=== PATIENT | male | born 1935 | race Caucasian/White ===

== ENCOUNTER → 2016-09-05 | Outpatient (CLI) | payer MEDICARE, BC, OTHER ==
[~2016-09-05] MED LIST: ASPI1TAB69 PO; ATOR20TA15 PO; CALC1TAB53 PO; CENTTAB PO; CRAN250T PO; EPINEPHrine HCL (1:1000) 1 MG/ML VIAL ONE; FISH1000 PO; FLAX10002 PO; GLUCTAB6 PO; HYDR25TA5 PO; LOSA50TA PO; OCUVTAB4 PO; OMEP20TA PO; SAW160TA PO; TAMS0.4C4 PO; XARE20TA PO
--- NOTE | 2016-09-05 11:47 | RADRPT ---
EXAM DATE/TIME: 09/05/2016 11:33 [place] COMPARISON: No previous studies available for comparison. INDICATIONS : Evaluate for pneumonia, pneumothorax and communicable diseases. Pre-op knee arthroscopy. MEDICAL HISTORY : None. SURGICAL HISTORY : None. ENCOUNTER: Initial ACUITY: 1 day PAIN SCORE: 0/10 LOCATION: chest FINDINGS: PA and lateral views of the chest demonstrate the lungs to be symmetrically aerated without evidence of mass, infiltrate or effusion. The cardiomediastinal contours are unremarkable. Osseous structure s are intact. CONCLUSION: No acute disease. Henrry Menon MD on September 05, 2016 at 11:46 Board Certified Radiologist. This report was verified electronically.
[2016-09-05 12:09] LABS: INTERNATIONAL NORMALIZED RATIO 1.1 RATIO; PROTHROMBIN TIME - PATIENT 12.5 SEC (9.8-11.6)
[2016-09-05 12:17] LABS: BLOOD, URINE NEG (NEG); GLUCOSE,URINE NEG (NEG); KETONE, URINE NEG (NEG); NITRITE,URINE NEG (NEG); PH, URINE 7.5 (5.0-8.5); URINE COLOR YELLOW (YELLW/STRAW)
[2016-09-05 12:19] LABS: COMMENT (UR) CULT NOT INDICATED; CULTURE IF INDICATED CULT NOT INDICATED
[2016-09-05 12:21] LABS: BICARBONATE 32.9 MEQ/L (21.0-32.0); POTASSIUM 3.9 MEQ/L (3.5-5.1)
== END ==
LOC: CPRE 10:20
PROVIDERS: ATTEND Orthopaedic Surgery
DX: Z01.810 Encounter for preprocedural cardiovascular examination (principal); Z01.811 Encounter for preprocedural respiratory examination; Z01.812 Encounter for preprocedural laboratory examination; Z79.01 Long term (current) use of anticoagulants; S83.242D Other tear of medial meniscus, current injury, left knee, subsequent encounter; X58.XXXD Exposure to other specified factors, subsequent encounter
CPT/HCPCS: 36415; 71020; 80048; 81001; 85610; J0171

== ENCOUNTER → 2016-10-13 | Day surgery (SDC) | payer MEDICARE, OTHER, BC ==
--- NOTE | 2016-09-11 21:57 | MH ---
cc: FRANK FREGOSO DATE OF ADMISSION 09/15/2016 ADMISSION DIAGNOSIS Medial meniscus tear of the left knee, chondromalacia left knee, chondromalacia patellae left knee, effusion left knee and pain of the left knee. HISTORY OF THE PRESENT ILLNESS The patient is an 81-year-old white male who has had a lengthy history of pain involving his left knee extending back at least 3 years at which time he reports undergoing an operative repair for ruptured quad tendon about the left knee. Treatment was completed in the [place], [place] area and the patient reports an uneventful recovery thereafter, and had been doing reasonably well until approximately two months prior to this current admission. At that time he was conforming to exercise activities when he hyperflexed his left knee with the onset of pain about the medial aspect of the knee being noted. He conformed to conservative management which included taking ibuprofen and applying ice with minimal relief being noted. He contacted his primary care physician Dr. Pryor who ordered x-ray studies which reported moderate tricompartmental osteoarthritis. The patient was later seen by the undersigned physician in July of this year for ongoing symptoms involving his left knee. A review of his x-ray studies did demonstrate some narrowing of the medial compartment consistent with a degenerative change for which the patient did receive a steroid injection and followed on an outpatient basis thereafter. Unfortunately he remained symptomatic with pain about the knee for which he did undergo an MRI scan the results of which identified a large joint effusion with extensive chondromalacia involving the patella as well as the medial compartment associated with an undersurface tear involving the posterior horn and body of the medial meniscus. The patient did report that he received some temporary benefit from the injection that he had previously received but because of continuing pain about the left knee indicated his desire to proceed with further disposition. The involvement of arthroscopic surgery was outlined for which the patient indicated his full understanding and expressed his desire to proceed accordingly. In compliance with his wishes he is currently being admitted in order that the above be accomplished. PAST MEDICAL HISTORY His past medical history, hospitalizations and surgeries have included: 1. Surgery of the left knee as described. 2. Right total hip arthroplasty. 3. Tonsillectomy. 4. Colonoscopy. 5. Hemorrhoidectomy. 6. Cystoscopy for history of a bladder tumor. 7. Medical management for dehydration. 8. And a TIA without residual being noted. 9. He has also undergone excision of melanoma involving the head, chest and back area. His medical illnesses include recently diagnosed atrial fibrillation. MEDICATIONS Current medications: 1. Tamsulosin 0.4 mg daily. 2. Omeprazole 20 milligrams daily. 3. Atorvastatin 20 mg daily. 4. Losartan 50 mg daily. 5. Hydrochlorothiazide 25 mg daily. 6. Glucosamine one daily. 7. An 81 milligrams aspirin tablet daily. 8. Centrum Silver. 9. PreserVision. 10. Flaxseed oil. 11. Cranberry extract. 12. Saw palmetto. 13. Fish oil. 14. Calcium, magnesium and zinc supplement. 15. He was recently started on Xarelto. ALLERGIES HE DESCRIBES A DRUG ALLERGY TO SULFA WHICH CREATES A GENERALIZED UNEASY SENSATION. REVIEW OF SYSTEMS He does wear glasses. Denies headache, seizure or syncope. No sinus congestion or epistaxis. Diminished auditory acuity for which hearing aids are utilized. No bleeding gums or dysphagia. Denies cough, shortness of breath, upper respiratory infection, pneumonia or tuberculosis. No angina. Recently diagnosed atrial fibrillation. Medically managed for hypertension. Appetite is good. Bowel movements are regular. No hepatitis, gallbladder disease or ulcers. There is a positive history of hemorrhoids. He has had previous urinary tract infection. History of kidney stones with spontaneous passage. Fracture of the right foot treated conservatively. No psychiatric illness. His remaining review of systems is unremarkable and noncontributory. FAMILY HISTORY The patient has been for 20 years, this being a third marriage. His is 70 years of age. She is in reasonably good health but did recently undergo cardiac stent insertion. The patient has three living daughters who are described as being in good health. One daughter at 17 years of age with a history of bone cancer. FAMILY HISTORY Otherwise positive for hypertension, diabetes, cerebral hemorrhage, kidney disease and skin cancer. SOCIAL HISTORY The patient completed a Ph.D. degree. 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 He denies active use of tobacco for over 60 years but had been a five pack year user prior to that time. Denies ethanol consumption. PHYSICAL EXAMINATION VITAL SIGNS: Height 6 feet, weight 213 pounds. GENERAL: An alert, oriented and responsive 81-year-old white male who sits quietly upon examination table with no obvious distress. HEENT: Pupils are equally round and reactive to light. Extraocular movements full. Sclerae clear. External nares clear. External auditory canals clear. Dental intact. Mucous membranes pink and moist. Pharynx clear. NECK: Supple. Active range of motion without appreciable pain. Carotid pulse bilaterally. Trachea midline. Thyroid without enlargement. LUNGS: Clear to auscultation and percussion. No CVA tenderness. No discomfort throughout the dorsal lumbar spine. HEART: Regular, irregular rhythm without murmur or gallop. ABDOMEN: Soft, nontender. Bowel sounds present. RECTAL: Per primary care physician. EXTREMITIES: Right knee a well-healed surgical wound about the anterior aspect of the knee consistent with prior history of surgery. No appreciable knee effusion. Slight medial joint line tenderness. Apprehension and compression sign negative. Limited mobility in the 110 degrees range of flexion with mild discomfort associated. No sensation of crepitation or instability. No ligamentous laxity. Distal sensory grossly intact. Independent gait. NEUROLOGICAL: Cranial nerves II-XII grossly intact excluding diminished auditory acuity. IMPRESSION Medial meniscus tear left knee, chondromalacia left knee, chondromalacia patellae left knee, effusion left knee and pain of the left knee. PLAN Arthroscopic surgery and possible arthrotomy left knee. The nature of the planned surgical procedure, the potential complications and risks associated, the expectations of surgery and the consent form were thoroughly reviewed with the patient in the presence of his prior to admission to the hospital. The patient has indicated his full understanding regarding all of the above and given consent to proceed with treatment as outlined. Medical evaluation and clearance for surgery will be completed by the patient's primary care physician Dr. Марина Pryor. MD JERICA Vera/KI /7:18 PM /9:43 PM
--- NOTE | 2016-09-23 12:16 | MH ---
Cc: ANNETTEALONFRANK DATE OF ADMISSION: 10/13/2016 ADMITTING DIAGNOSIS: 1. A medial meniscus tear of the left knee. 2. Chondromalacia left knee. 3. Chondromalacia patellae left knee. 4. Effusion left knee. 5. pain left knee. HISTORY The patient is an 81-year-old white male with a lengthy history of left knee pain extending back approximately three years at which time he reported undergoing operative repair for ruptured quad tendon about his left knee. His treatment was completed in the [facility] area where the patient reports an uneventful recovery thereafter and had been doing well until approximately 2-3 months prior to his current admission. At that time he was conforming to exercise activities when he hyper flexed his left knee with the onset of pain about the medial aspect of the knee joint being noted. He conformed to conservative management which included taking ibuprofen and ice application with minimal relief being noted. He contacted his primary care physician Dr. Jose Meier who ordered x-ray studies which did report moderate tricompartmental osteoarthritis. The patient was later seen by the undersigned physician in July of this year for ongoing symptoms involving his left knee. A review of his x-ray studies demonstrated some narrowing of the medial compartment consistent with a degenerative process for which the patient did receive a steroid injection followed on an outpatient basis thereafter. Unfortunately he remained symptomatic with pain about his knee region for which he did subsequently undergo an MRI scan results of which identified a large joint effusion with extensive chondromalacia involving the patella as well as the medial compartment associated with an undersurface tear involving the posterior horn and body of the medial meniscus. The patient reported only temporary relief from his injection that he had previously received and was continuing to have pain about the left knee indicating his desire to proceed with further disposition. The involvement of arthroscopic surgery was outlined for which the patient indicated full understanding and expressed his desire to proceed accordingly in compliance with his wishes he is currently been scheduled for admission in order that the above be accomplished. PAST MEDICAL HISTORY/HOSPITALIZATIONS/SURGERIES: 1. Quad repair of the left knee as described. 2. Right total hip arthroplasty 3. Tonsillectomy 4. Colonoscopy 5. Hemorrhoidectomy 6. Cystoscopy for history of bladder tumor. Medical management of dehydration 7. TIA without residual 8. He has also undergone excision melanoma involving his head, chest and back area. 9. Medical illnesses include atrial fibrillation recently diagnosed. CURRENT MEDICATIONS 1. Tamsulosin 0.4 mg daily. 2. Omeprazole 20 mg daily. 3. Atorvastatin 20 mg daily. 4. Losartan 50 mg daily. 5. Hydrochlorothiazide 25 mg daily. 6. Glucosamine 1 daily. 7. 81 mg aspirin tablet one daily. 8. Centrum Silver 9. PreserVision 10. flaxseed oil 11. cranberry extract 12. saw palmetto 13. fish oil 14. calcium, magnesium and zinc supplement 15. Xarelto ALLERGIES the patient describes a drug allergy to SULFA which has caused generalized uneasy sensation. REVIEW OF SYSTEMS Wears glasses. No headache, seizure or syncope. No sinus congestion or epistaxis. Diminished auditory acuity for which hearing aids are easily utilize no bleeding gums or dysphagia. Denies cough, shortness of breath, upper respiratory infection, pneumonia or tuberculosis. No angina. Recently diagnosed atrial fibrillation medically managed for hypertension. Appetite good bowel movements regular. No hepatitis, gallbladder disease or ulcers. He has a history of hemorrhoids previous urinary tract infection, kidney stones with spontaneous passage, fracture of the right foot treated conservatively. No psychiatric illness. Remaining review of systems is unremarkable and noncontributory. FAMILY HISTORY 20 years, this being a third marriage why 68 years of age in good health but did undergo recent cardiac stent insertion. The patient has three living daughters are described as being good health. One daughter at 17 years of age with a history of bone cancer. FAMILY HISTORY: Otherwise positive for hypertension, diabetes, cerebral hemorrhage kidney disease and skin cancer. SOCIAL HISTORY The patient completed a Ph.D. degree. 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 He denies active use of tobacco for more than 60 years but had been a five pack year history prior to that time, denies ethanol consumption. PHYSICAL EXAMINATION VITAL SIGNS: Height 6 feet, weight 213 pounds. An alert, oriented responsive 81 Old white male who sits quietly upon examination table with no apparent distress. HEAD, EYES, EARS, NOSE, AND THROAT: Eyes, nose and throat pupils equally round and reactive to light. Extraocular movements full. Sclerae clear. External nares clear. External auditory canals clear. Dental intact. Mucous membranes pink and moist. Pharynx clear. NECK: Supple. Active range of motion without significant pain. Carotid pulse bilaterally. Trachea midline. Thyroid without enlargement. LUNGS: Clear to auscultation and percussion. No CVA tenderness. No discomfort throughout the dorsal lumbar spine. HEART: Regular irregular rhythm without murmur or gallop. ABDOMEN: The abdomen is soft, nontender, bowel sounds present. RECTUM: Rectal per primary care physician. EXTREMITIES: Right knee per primary care physician. Extremities: Right knee. A well-healed surgical wound about the anterior aspect of the knee consistent with prior history of surgery. No appreciable knee effusion. The medial joint line tenderness. Apprehension and compression sign negative. Limited mobility in the 110 degrees range of flexion with mild discomfort associated, no sensation of crepitation or instability. No ligamentous laxity. Distal sensory grossly intact. Independent gait. NEUROLOGIC: Cranial nerves II-XII grossly intact excluding diminished auditory acuity. IMPRESSION 1. Medial meniscus tear left knee. 2. chondromalacia left knee. 3. chondromalacia patellae left knee. 4. effusion left knee. 5. pain left knee. PLAN Arthroscopic surgery and possible arthrotomy of the left knee. The nature of the planned surgical procedure the potential complications and risks associated the expectations of surgery and the consent form were thoroughly reviewed with the patient in the presence of his prior to [id number] to the hospital the patient has indicated his full understanding regarding all of the above and given consent to proceed with treatment as outlined. Medical evaluation and clearance for surgery will be completed by the patient's primary care physician Dr. Марина Pryor. MD JERICA Vera/ashlee /10:49 AM /11:35 AM
[~2016-10-13] VITALS: Ht 182.9 cm; Wt 98.9 kg
[~2016-10-13] MED LIST changes: +ACETAMINOPHEN 1000 MG/100 ML VIAL IV ONE; +CHLORHEXIDINE GLUCONATE 2 % 1 PACK (2 CLOTHS) TOPICAL PRN; -EPINEPHrine HCL (1:1000) 1 MG/ML VIAL ONE; +FAMOTIDINE 20 MG/2 ML VIAL ONE; +INSULIN HUMAN REGULAR 1,000 UNITS/10 ML VIAL SQ PRN; +KETOROLAC TROMETHAMINE 60 MG/2 ML (IM) VIAL IM ONE; +LACTATED RINGER'S 1000 ML INJ 1,000 ML IV ONE; +LACTATED RINGER'S 1000 ML INJ 1,000 ML IV SCH; +LIDOCAINE HCL 2% 50 ML VIAL ONE; +LIDOCAINE HCL 2% PF SOLN 10 ML VIAL INFIL ONE; +METOPROLOL TARTRATE 25 MG TAB PO PRN; +MIDAZOLAM HCL 2 MG/2 ML VIAL ONE; +ONDANSETRON HCL 4 MG/2 ML VIAL IV PUSH ONE; +POVIDONE IODINE 5% (ANTISEPSIS KIT) 4 APPLICATIONS EACH NARE PRN; +POVIDONE IODINE 7.5% SCRUB 118 ML BOTTLE TOPICAL SCH; +PROPOFOL 200 MG/20 ML AMP IV ONE; +SODIUM CHLORID 0.9% 500 ML IV PRN; +TRIAMCINOLONE ACETONIDE 40 MG/ML VIAL I-ARTICULR ONE; +ceFAZolin 2 GM PREMIX 50 ML IV SCH; +ePHEDrine/NS 25 MG/5 ML SYR IV ONE; +fentaNYL CITRATE 250 MCG/5 ML AMP ONE
[2016-10-13 06:19] VITALS: BP 152/78; PULSE 63; RESP 18; TEMP 97.8; O2SAT 97
[2016-10-13 09:20] VITALS: TEMP 97.9
[2016-10-13 10:00] VITALS: BP 143/67; PULSE 70; RESP 18; O2SAT 100
--- NOTE | 2016-10-17 23:00 | MP ---
cc: FRANK NARAYAN DATE OF SURGERY 10/13/16 PREOPERATIVE DIAGNOSIS 1. Medial meniscus tear of the left knee 2. Chondromalacia left knee, 3. Chondromalacia patellae left knee 4. Effusion left knee 5. Pain left knee. POSTOPERATIVE DIAGNOSIS 1. Medial meniscus tear of the left knee 2. Chondromalacia left knee, 3. Chondromalacia patellae left knee 4. Effusion left knee 5. Pain left knee. 6. Synovial plica left knee PROCEDURE 1. Partial medial meniscectomy left knee 2. Chondroplasty of the patellofemoral joint and the medial compartment 3. Resection of synovial plica left knee SURGEON Micheal Narayan MD ANESTHESIA General by LMA FORMAT Following induction of satisfactory general anesthesia by LMA insertion as completed per the Department of Anesthesia, examination of the left knee did reveal a satisfactory range of motion with no appreciable ligamentous instability. The extremity proper was positioned in the surgical supply assistant knee mohan, prepped with Betadine solution and draped into a sterile field in the routine manner. Prior to initiation of the actual procedure, the standard time-out protocol was completed. All parameters were appropriately addressed and confirmed by operating room personnel. Arthroscopic instrumentation was introduced through stab wound utilizing cannula with sharp and blunt trocar. The inflow irrigation by way of a medial suprapatellar portal. The arthroscope through a lateral parapatellar portal and a probe through a medial parapatellar portal. Examination of the suprapatellar pouch revealed a prominent synovial plica extending throughout the medial aspect with associated reactive synovitis. Obvious cartilaginous irregularity involving the patellofemoral joint consistent with localized chondromalacia and associated degenerative change within the medial compartment a degenerative tear involving the body and posterior horn of the medial meniscus was associated with generalized chondromalacia involving both femoral condyle and tibial plateau. Examination throughout the intercondylar region revealed an intact anterior cruciate ligament. There were additional degenerative changes throughout the lateral compartment including some fraying of the lateral meniscus. Utilizing a 4.0 aggressive resector, a limited debridement of the lateral compartment transitioned into the medial compartment where a partial medial meniscectomy was accomplished as well as a generalized chondroplasty of both femoral condyle and tibial plateau. The shaver was thereafter oriented into the suprapatellar region where the previously identified synovial plica was resected followed by a generalized chondroplasty of the patellofemoral joint. Upon completion of same, the joint space was thoroughly lavaged and suctioned dry. An intra-articular Kenalog-lidocaine injection was completed. Portal sites were reapproximated with Steri-Strips over which Xeroform gauze and a bulky dry sterile dressing were applied. Anesthesia was discontinued and the patient thus transferred to a hospital stretcher and returned to the recovery room in satisfactory condition having tolerated his operative procedure well. Estimated blood loss was less than 10 mL. MD JERICA Vera/ /8:42 AM /10:51 PM
== END | disposition home or self-care (01) ==
LOC: EDUNIT# 09-15 08:30 → HSDC 05:33
PROVIDERS: ATTEND Orthopaedic Surgery
DX: S83.242A Other tear of medial meniscus, current injury, left knee, initial encounter (principal); M94.262 Chondromalacia, left knee; M67.52 Plica syndrome, left knee; I10 Essential (primary) hypertension; I48.91 Unspecified atrial fibrillation; Z79.01 Long term (current) use of anticoagulants; Z79.82 Long term (current) use of aspirin; Z86.73 Personal history of transient ischemic attack (TIA), and cerebral infarction without residual deficits; Z85.820 Personal history of malignant melanoma of skin; Z96.641 Presence of right artificial hip joint
CPT/HCPCS: 01400; 29881; J0131; J0690; J1885; J2250; J2405; J3010; J3301; J7120

== ENCOUNTER 2018-07-24 05:13 | Inpatient (IN) ==
--- NOTE | 2018-07-22 12:53 | MH ---
cc: William Narayan MD DATE OF ADMISSION: 07/24/2018 He is scheduled for admission on 07/24/2018. ADMITTING DIAGNOSIS: Osteoarthritis of the left knee. HISTORY OF PRESENT ILLNESS: The patient is an 82-year-old white male who has experienced at least a 5-year history of pain involving his left knee. He had sustained an injury to his left knee within the previous 5 years, resulting in a ruptured quad tendon that did require operative repair, this treatment being completed in the [facility] area where he experienced an uneventful recovery and had done well until the past couple of years when he began to experience some recurrent pain about his knee as a result of exercise activities. He was later diagnosed as having a medial meniscus tear associated with chondromalacia for which he did undergo arthroscopic surgery in September 2016. Once again, he had done reasonably well but with the passage of time, became progressively more symptomatic with pain for which he returned to the office in May of this past year, reporting that he was experiencing progressive pain about the anterior aspect of his left knee that had begun to influence all weightbearing activities. He had been taking ibuprofen for pain management with minimal benefit being described. His x-ray studies revealed obvious degenerative change with [id number] apposition about the medial compartment, associated with a varus deformity of approximately 10 degrees magnitude and secondary degenerative involvement of the patellofemoral articulation. There was ossification superior to the patella that was consistent with his prior history of injury and surgery. Findings and treatment options were reviewed with the patient at that time. The pros and cons of continued conservative management versus operative intervention involving total knee replacement were outlined in detail. Emphasis was made regarding the fact that the decision to proceed with surgery would be left entirely to the patient's discretion. The patient noted that he felt his symptoms had progressed to a point in time where he was ready to proceed accordingly, and in compliance with his wishes, he is currently being admitted in order that a total knee replacement be completed. PAST MEDICAL HISTORY, HOSPITALIZATIONS AND SURGERIES: In addition to arthroscopic surgery as described include quad tendon repair of the left knee, right total hip arthroplasty, left total shoulder arthroplasty, tonsillectomy, colonoscopy, hemorrhoidectomy and cystoscopy for history of bladder tumor and medical management for dehydration, medical management of a TIA, excision of a melanoma involving the head, chest and back area. His current medical illnesses include a history of atrial fibrillation. CURRENT MEDICATIONS: 1. Tamsulosin 0.4 mg daily. 2. Omeprazole 20 mg daily. 3. Atorvastatin 20 mg daily. 4. Losartan 80 mg daily. 5. Hydrochlorothiazide 25 mg daily. 6. He has been taking an 81 mg aspirin tablet daily. 7. Centrum Silver 8. PreserVision. 9. Cranberry extract. 10. Saw palmetto. 11. Fish oil. 12. Turmeric. 13. Calcium, magnesium and zinc supplement. ALLERGIES: THE PATIENT DESCRIBES A DRUG ALLERGY TO SULFA, WHICH HAS CAUSED A GENERALIZED UNEASY SENSATION. REVIEW OF SYSTEMS: He does wear glasses. Denies headache, seizure or syncope. No sinus congestion or epistaxis. Diminished auditory acuity for which hearing aids are utilized. No bleeding gums or dysphagia. Denies cough, shortness of breath, upper respiratory infection, pneumonia or tuberculosis. No angina. He has been diagnosed with atrial fibrillation in the past. Medically managed for hypertension. Appetite good. Bowel movements regular. No hepatitis, gallbladder disease or ulcers. Positive history of hemorrhoids, history of urinary tract infection, kidney stones with spontaneous passage, fracture of right foot, treated conservatively. No psychiatric illness. His remaining review of systems is unremarkable and noncontributory. FAMILY HISTORY: at least 21 years, this being a third marriage. is 70 years of age, in good health, is status post cardiac stent insertion. Three daughters, all indicated to be in good health. One daughter at 17 years of age with a history of bone cancer. Family history is otherwise positive for hypertension, diabetes, cerebral hemorrhage, kidney disease and skin cancer. SOCIAL HISTORY: The patient completed a Ph.D. degree education. 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 Denies active use of tobacco for greater than 62 years, having been a 5-pack-year user in the past. Denies ethanol consumption. PHYSICAL EXAMINATION: VITAL SIGNS: Height 6 feet, weight 219 pounds. GENERAL: An alert, oriented and responsive 82-year-old white male sitting quietly upon the examination table, no obvious distress. HEAD, EARS, EYES, NOSE AND THROAT: Pupils are equally round and reactive to light. Extraocular movements full. Sclerae are clear. External nares clear. External auditory canals clear. Dental intact. Mucous membranes pink and moist. Pharynx clear. NECK: Supple. Active range of motion without appreciable pain. Carotid pulses palpable bilaterally. Trachea midline. Thyroid without thyroid enlargement. LUNGS: Clear to auscultation and percussion. BACK: No CVA tenderness. No discomfort throughout the dorsolumbar spine. HEART: Irregular rhythm without murmur or gallop. ABDOMEN: Soft, nontender. Bowel sounds present. RECTAL: Per primary care physician. EXTREMITIES: Left knee with a well-healed surgical wound along the anterior aspect of the knee consistent with a prior history of surgery. No swelling or effusion. No appreciable joint line tenderness. Apprehension and compression sign negative. Limited mobility in the 90-100 degree range of flexion with pain elicited. No crepitation or instability. No collateral ligamentous laxity. Mamie test and drawer sign negative. Pivot shift and Dahlia sign positive for medial compartment pain. Straight leg raising unremarkable at 80 degrees. Independent gait. NEUROLOGIC: Cranial nerves 2-12 grossly intact, excluding diminished auditory acuity. IMPRESSION: Osteoarthritis, left knee. PLAN: Left total knee arthroplasty: The nature of the planned surgical procedure, the potential complications and risks associated, the expectations of surgery and the consent form were thoroughly reviewed with the patient in the presence of his prior to admission to the hospital. Clarence has indicated his full understanding regarding all of the above and given consent to proceed with treatment as outlined. Medical evaluation and clearance for surgery completed by his primary care physician, Dr. Марина Pryor, cardiology clearance per Dr. Cm. MD JERICA Vera/belkis , 11:41 AM , 11:55 AM
[2018-07-24] MEDS ORDERED: Metoprolol Tartrate 25 MG Tablet PO ONE (05:43)
[2018-07-24] MEDS ORDERED: Chlorhexidine Gluconate 2% 1 Pack (2 Cloths) TOPICAL ONE (05:43)
[2018-07-24] MEDS ORDERED: Sodium Chlor 0.9% Inj 500 ML IV.SIG ONE (05:45)
[2018-07-24] MEDS ORDERED: Chlorhexidine 4% Topical 120 APPLIC/120 ML Bottle TOPICAL SCH (06:00)
[2018-07-24] MEDS ORDERED: ceFAZolin 2 GM Premix Inj 2 GM/50 ML PIGGYBACK IV.SIG SCH (06:00)
[2018-07-24] MEDS ORDERED: Aspirin 325 MG Tablet ONE (06:08)
[2018-07-24] MEDS ORDERED: Sodium Chlor 0.9% Inj 50 ML, Bupivacaine Liposo PF 1.3% Inj 20 ML, Bupivacaine PF 0.25%... P-ARTICULR SCH ×3 (07:00)
[2018-07-24] MEDS ORDERED: TRANEXAMIC ACID IV.SIG SCH ×2 (07:00→10:00)
[2018-07-24] MEDS ORDERED: SODIUM CHLOR 0.9% IV.SIG SCH ×2 (07:00→10:00)
== END 2018-07-24 06:24 | disposition home or self-care (01) | DRG 554 ==
LOC: HSDI 05:13
PROVIDERS: ADMIT Orthopaedic Surgery; ATTEND Orthopaedic Surgery
CPT/HCPCS: 86850; 86900; 86901; 99211; G0463; J0131